=== PATIENT | female | born 1965 | race Caucasian/White ===

== ENCOUNTER 2017-03-11 02:21 | Inpatient (IN) | payer MEDICAID, OTHER ==
[~2017-03-11] VITALS: Ht 170.2 cm; Wt 71.6 kg
[2017-03-11 03:11] LABS: Basophils # (auto) 0 uL; Basophils % (auto) 0.2 % (0.0-2.0); Eosinophils # (auto) 0.1 uL; Eosinophils % (auto) 1.2 % (0.0-7.0); Hematocrit 39.7 % (36.0-46.0); Hemoglobin 13.3 g/dL (12.2-16.2); Lymphocytes # (auto) 1.5 uL; Lymphocytes % (auto) 14.9 % (10.0-50.0); Mean Corpuscular Hgb Conc. 33.5 g/dL (32.0-36.0); Mean Corpuscular Volume 86.7 fL (80.0-100.0); Mean Platelet Volume 6.7 fL (7.4-10.4); Monocytes # (auto) 0.5 uL; Monocytes % (auto) 4.9 % (0.0-12.0); Neutrophils # (auto) 7.8 uL; Neutrophils % (auto) 78.8 % (37.0-80.0); Platelet Count (auto) 459 10^3/uL (140-450); Red Cell Distribution Width 13.7 % (11.6-16.0); White Blood Cell 9.9 10^3/uL (4.4-10.8)
[2017-03-11 03:35] LABS: Albumin 3.7 g/dL (3.4-5.0); BUN/Creatinine Ratio 13.5; Bilirubin, Total 0.2 mg/dL (0.2-1.0); Calcium 9.4 mg/dL (8.5-10.1); Potassium 3.8 mmol/L (3.5-5.1); Total Protein 7.8 g/dL (6.4-8.2)
[2017-03-11 05:27] LABS: Urine RBC None Seen /hpf (0 - 4)
[2017-03-11 05:33] LABS: Urine Bilirubin Negative (Negative); Urine Blood Negative /uL (Negative); Urine Color Yellow (Yellow); Urine Glucose Normal (Normal); Urine Ketone Negative (Negative); Urine Nitrite Negative (Negative); Urine Squamous Epithelial Cell FEW /hpf (<5); Urine Urobilinogen Normal (Negative); Urine pH 8.5 (5.0-8.0)
[2017-03-11] MEDS ORDERED: SODIUM CHLORIDE 0.9% 1,000 ML IV ONE (06:46)
[2017-03-11] MEDS ORDERED: ONDANSETRON HCL 4 MG/2 ML VIAL IV ONE (07:00)
[2017-03-11] MEDS ORDERED: MORPHINE SULF INJ 2 MG/ML SYRINGE 1ML IV ONE (07:00)
[2017-03-11] MEDS ORDERED: LEVOFLOXACIN 500MG 100 ML IV ONE ×2 (09:30→09:45)
[2017-03-11] MEDS ORDERED: metroNIDAZOLE 500MG/100ML 100 ML IV ONE (09:30)
[2017-03-11] MEDS ORDERED: LORazepam 0.5 MG TAB PO PRN (09:45)
[2017-03-11] MEDS ORDERED: TEMAZEPAM 15 MG CAP PO PRN (09:45)
[2017-03-11] MEDS ORDERED: NITROGLYCERIN 0.4 MG SL TAB SL PRN (09:45)
[2017-03-11] MEDS ORDERED: MORPHINE SULF INJ 2 MG/ML SYRINGE 1ML IV PRN ×2 (09:45)
[2017-03-11] MEDS ORDERED: MILK OF MAGNESIA 30ML SUSP PO PRN (09:45)
[2017-03-11] MEDS: HYDROcodone-ACET 5/325MG TAB PO PRN ×2 (10:11→22:14)
[2017-03-11] MEDS: ENOXAPARIN SOD 40 MG/0.4 ML SYRINGE SC SCH (10:11)
[2017-03-11] MEDS: SODIUM CHLORIDE 0.9% 1,000 ML IV SCH ×2 (10:11→17:51)
[2017-03-11] MEDS: LEVOFLOXACIN 500MG 100 ML IV SCH (10:11)
[2017-03-11] MEDS: FAMOTIDINE 20 MG TAB PO SCH ×2 (10:11→22:13)
[2017-03-11] MEDS: PROMETHAZINE HCL 25 MG/ML 1ML IV PRN (10:13)
[2017-03-11] MEDS: metroNIDAZOLE 500MG/100ML 100 ML IV SCH ×2 (12:23→17:51)
[2017-03-11 14:45] VITALS: BP 100/49
[2017-03-11 15:02] VITALS: BP 100/49
[2017-03-11 21:38] VITALS: BP 104/59
[2017-03-11] MEDS ORDERED: FLUO40CA PO (21:42)
[2017-03-11] MEDS ORDERED: CLON1TAB3 PO (21:42)
[2017-03-11] MEDS ORDERED: PRIM250T29 PO (21:42)
[2017-03-12] MEDS ORDERED: clonazePAM 0.5 MG TAB PO SCH (00:30)
[2017-03-12] MEDS ORDERED: PRIMIDONE 50 MG TAB PO ONE ×2 (00:30→00:45)
[2017-03-12] MEDS: metroNIDAZOLE 500MG/100ML 100 ML IV SCH ×5 (00:41→23:41)
[2017-03-12] MEDS ORDERED: clonazePAM 0.5 MG TAB PO ONE (00:45)
[2017-03-12 05:05] VITALS: BP 129/60
[2017-03-12 05:06] VITALS: BP 100/44
[2017-03-12] MEDS: SODIUM CHLORIDE 0.9% 1,000 ML IV SCH ×3 (05:28→22:11)
[2017-03-12] MEDS: ACETAMINOPHEN 500 MG TAB PO PRN ×2 (05:32→20:15)
[2017-03-12 08:12] VITALS: BP 107/51
[2017-03-12] MEDS: HYDROcodone-ACET 5/325MG TAB PO PRN ×3 (09:37→22:11)
[2017-03-12] MEDS: FAMOTIDINE 20 MG TAB PO SCH ×2 (09:37→22:10)
[2017-03-12] MEDS: clonazePAM 0.5 MG TAB PO SCH ×2 (09:38→22:10)
[2017-03-12] MEDS: ENOXAPARIN SOD 40 MG/0.4 ML SYRINGE SC SCH (09:38)
[2017-03-12] MEDS: LEVOFLOXACIN 500MG 100 ML IV SCH (09:38)
[2017-03-12] MEDS ORDERED: PRIMIDONE 50 MG TAB PO SCH (10:00)
[2017-03-12 13:00] VITALS: BP 97/48
[2017-03-12] MEDS: PROMETHAZINE HCL 25 MG/ML 1ML IV PRN (15:42)
[2017-03-12 16:55] VITALS: BP 102/56
[2017-03-12 22:00] VITALS: BP 103/51
[2017-03-12] MEDS: PRIMIDONE 50 MG TAB PO SCH (22:10)
[2017-03-13] MEDS: HYDROcodone-ACET 5/325MG TAB PO PRN ×2 (04:29→16:32)
[2017-03-13 05:00] VITALS: BP 115/45
[2017-03-13] MEDS: metroNIDAZOLE 500MG/100ML 100 ML IV SCH ×4 (06:09→23:59)
[2017-03-13] MEDS: ACETAMINOPHEN 500 MG TAB PO PRN ×2 (06:52→19:56)
[2017-03-13 08:38] VITALS: BP 97/61
[2017-03-13] MEDS: FAMOTIDINE 20 MG TAB PO SCH ×2 (09:37→21:42)
[2017-03-13] MEDS: ENOXAPARIN SOD 40 MG/0.4 ML SYRINGE SC SCH (09:37)
[2017-03-13] MEDS: clonazePAM 0.5 MG TAB PO SCH ×4 (09:37→22:00)
[2017-03-13] MEDS: LEVOFLOXACIN 500MG 100 ML IV SCH (09:37)
[2017-03-13] MEDS: SODIUM CHLORIDE 0.9% 1,000 ML IV SCH ×2 (09:38→21:37)
[2017-03-13] MEDS: PROMETHAZINE HCL 25 MG/ML 1ML IV PRN ×2 (09:57→14:20)
[2017-03-13 10:40] LABS: Basophils # (auto) 0.1 uL; Eosinophils # (auto) 0.1 uL; Eosinophils % (auto) 2.9 % (0.0-7.0); Hematocrit 33.1 % (36.0-46.0); Hemoglobin 10.7 g/dL (12.2-16.2); Lymphocytes # (auto) 1.8 uL; Lymphocytes % (auto) 37.3 % (10.0-50.0); Mean Corpuscular Hemoglobin 28.4 pg (28.0-32.0); Mean Corpuscular Hgb Conc. 32.4 g/dL (32.0-36.0); Mean Corpuscular Volume 87.4 fL (80.0-100.0); Mean Platelet Volume 6.4 fL (7.4-10.4); Monocytes # (auto) 0.3 uL; Monocytes % (auto) 6.6 % (0.0-12.0); Neutrophils # (auto) 2.5 uL; Platelet Count (auto) 362 10^3/uL (140-450); Red Cell Distribution Width 13.1 % (11.6-16.0); White Blood Cell 4.8 10^3/uL (4.4-10.8)
[2017-03-13 10:46] LABS: Basophils % (auto) 0.3 % (0.0-2.0); Neutrophils % (auto) 52.9 % (37.0-80.0)
[2017-03-13 11:07] LABS: BUN/Creatinine Ratio 8.3; Calcium 8.1 mg/dL (8.5-10.1); Potassium 3.8 mmol/L (3.5-5.1)
[2017-03-13 13:18] VITALS: BP 86/47
[2017-03-13] MEDS ORDERED: FLUoxetine HCL 20 MG CAP PO ONE (14:00)
[2017-03-13 17:25] VITALS: BP 108/54
[2017-03-13] MEDS: PRIMIDONE 50 MG TAB PO SCH (21:43)
[2017-03-13 22:00] VITALS: BP 103/50
[2017-03-13] MEDS ORDERED: PATIENTS OWN MEDICATION (Clonazepam 1 TAB) PO SCH (22:00)
[2017-03-14 05:00] VITALS: BP 101/44
[2017-03-14] MEDS: metroNIDAZOLE 500MG/100ML 100 ML IV SCH ×2 (05:03→12:21)
[2017-03-14] MEDS: SODIUM CHLORIDE 0.9% 1,000 ML IV SCH (05:03)
[2017-03-14] MEDS: HYDROcodone-ACET 5/325MG TAB PO PRN ×2 (08:19)
[2017-03-14 09:00] VITALS: BP 121/68
[2017-03-14] MEDS: LEVOFLOXACIN 500MG 100 ML IV SCH (09:55)
[2017-03-14] MEDS: ENOXAPARIN SOD 40 MG/0.4 ML SYRINGE SC SCH (09:55)
[2017-03-14] MEDS: clonazePAM 0.5 MG TAB PO SCH ×2 (09:56→10:00)
[2017-03-14] MEDS ORDERED: FLUoxetine HCL 20 MG CAP PO SCH (10:00)
[2017-03-14] MEDS ORDERED: PRIMIDONE 50 MG TAB PO SCH (10:00)
[2017-03-14] MEDS ORDERED: PRIMIDONE 250 MG PO SCH (10:00)
[2017-03-14] MEDS ORDERED: PATIENTS OWN MEDICATION (Fluoxetine Hcl 1 CAP) PO SCH (10:00)
[2017-03-14] MEDS: FAMOTIDINE 20 MG TAB PO SCH (10:07)
[2017-03-14] MEDS: ACETAMINOPHEN 500 MG TAB PO PRN (12:23)
[2017-03-14 13:00] VITALS: BP 118/83
[2017-03-14 16:08] VITALS: BP 109/56
[2017-03-14 16:51] VITALS: BP 109/56
== END 2017-03-14 17:00 | disposition home or self-care (01) | DRG 244 ==
LOC: ER 02:21 → EDBD 02:21 → OVERFLOW 02:22 → CENTRAL 14:33
PROVIDERS: ADMIT Internal Medicine; ATTEND Internal Medicine
DX: K57.32 Diverticulitis of large intestine without perforation or abscess without bleeding (principal); F31.9 Bipolar disorder, unspecified; G89.4 Chronic pain syndrome; K80.20 Calculus of gallbladder without cholecystitis without obstruction; F41.9 Anxiety disorder, unspecified; M54.42 Lumbago with sciatica, left side; Z80.3 Family history of malignant neoplasm of breast; Z80.41 Family history of malignant neoplasm of ovary; Z80.49 Family history of malignant neoplasm of other genital organs; Z88.1 Allergy status to other antibiotic agents; Z88.2 Allergy status to sulfonamides; Z88.8 Allergy status to other drugs, medicaments and biological substances
CPT/HCPCS: 36415; 71020; 74176; 80048; 80053; 81001; 81025; 82150; 82270; 82962; 83690; 83735; 85025; 85652; 94761; 96361; 96374; 96375; J1956; J2405; J3490